=== PATIENT | female | born 1975 | race Caucasian/White ===

== ENCOUNTER 2017-01-23 13:59 | Emergency (ER) | payer MEDICAID, OTHER ==
[~2017-01-23] VITALS: Ht 157.5 cm; Wt 55.0 kg
[2017-01-23 14:11] VITALS: Ht 157.5 cm; Wt 55.0 kg
[2017-01-23] MEDS ORDERED: SOD CHLORIDE 0.9% 1,000 ML IV STA (17:55)
[2017-01-23 18:24] LABS: ADD SCAN DIFF NO
[2017-01-23 18:31] LABS: BASOPHILS % 0.3 % (0.0-2.0); EOSINOPHILS # 0.1 10^3/ul (0.0-0.5); EOSINOPHILS % 0.7 % (0.0-7.0); HEMATOCRIT 28.7 % (37.0-47.0); HEMOGLOBIN 8.8 g/dl (12.0-16.0); LYMPHOCYTES # 1.9 10^3/ul (0.8-2.9); LYMPHOCYTES % 21.4 % (15.0-51.0); MEAN CORPUSCULAR HEMOGLOBIN 22.2 pg (29.0-33.0); MEAN CORPUSCULAR HGB CONC 30.7 g/dl (32.0-37.0); MEAN CORPUSCULAR VOLUME 72.3 fl (82.0-101.0); MEAN PLATELET VOLUME 10.9 fl (7.4-10.4); MONOCYTE # 0.4 10^3/ul (0.3-0.9); MONOCYTES % 4.8 % (0.0-11.0); NEUTROPHIL # 6.4 10^3/ul (1.6-7.5); NEUTROPHILS % 72.6 % (39.0-77.0); PLATELET COUNT 272 10^3/UL (140-415); RED BLOOD COUNT 3.97 10^6/ul (4.20-5.40); RED CELL DISTRIBUTION WIDTH 15.9 % (11.5-14.5); WHITE BLOOD COUNT 8.8 10^3/ul (4.8-10.8)
[2017-01-23 18:35] LABS: ALBUMIN 4.5 g/dl (3.3-4.9); POTASSIUM 3.9 mmol/L (3.5-5.1)
[2017-01-23 18:37] LABS: BILIRUBIN,INDIRECT 0.2 mg/dl (0-1.1); BILIRUBIN,TOTAL 0.2 mg/dl (0.2-1.3); CREATININE 0.65 mg/dl (0.44-1.00); IRON 18 ug/dl (35-150)
[2017-01-23 18:38] LABS: ALBUMIN/GLOBULIN RATIO 1.36; CALCIUM 9.1 mg/dl (8.4-10.2); TOTAL PROTEIN 7.8 g/dl (6.1-8.1)
[2017-01-23 18:46] LABS: TOTAL IRON BINDING CAPACITY 481 ug/dl (241-421)
--- NOTE | 2017-01-23 18:58 | RADRPT ---
PROCEDURE: US Pelvis. CLINICAL INDICATION: Pelvic pain TECHNIQUE: Multiple sonographic images of the pelvis were obtained utilizing a transabdominal tech nique. The images were reviewed on a PACS workstation. COMPARISON: None available FINDINGS: Uterus: Normal in size, contour and echogenicity with no evidence for myometrial masses. Retroflexed in position. Size is estimated at 8.6 x 5.6 x 5.2 cm. Cervix: No abnormalities of significance are seen. Endometrium: Normal in thickness for the patient's provided age and presumed premenopausal status; 9.8 mm. No increased blood flow on Doppler interrogation. Right ovary / adnexa: Normal in size estimated at 2.2 x 1.8 x 1.5 cm. No evidence for masses, norm al blood flow on Doppler interrogation. Left ovary/adnexa: Normal in size estimated at 2.5 x 1.6 x 1.3 cm. No evidence for solid masses, no rmal blood flow on Doppler interrogation. Cul-de-sac: No evidence of free fluid. RPTAT:HJJR IMPRESSION: Unremarkable pelvic ultrasound. Physician Hadley Date Time Electronically viewed and signed by Physician Hadley on 01/23/2017 18:58 JR/
[2017-01-23 19:15] LABS: FERRITIN 4.1 ng/ml (6.2-137.0)
--- NOTE | 2017-01-23 19:46 | ERD ---
ER Documentation Chief Complaint Date/Time DATE: 01/23/17 TIME: 19:40 Chief Complaint REFERRED BY PCP TO TREAT ANEMIA HPI This is a very pleasant 41-year-old [place]ander-speaking female that presents to the emergency department from her primary care physician's office Dr. Ceferino Guerin for further evaluation into anemia. The patient had ancillary laboratory work performed in his office that indicated the patient had a hemoglobin of 8.6 and hematocrit of 27. The patient indicates that for the past 2 months she has had intermittent myalgias and lightheadedness. She indicates that she has become more tired much more easily. She states she has had no fevers no shaking or chills. She denies any easy bruising, epistaxis or gingival bleeding. She has no shortness of breath at rest or exertion. The patient indicates that over the past 2 months she also has been experiencing very regular menstrual cycles. She will demonstrate 2 times per month and will use roughly 5 super absorbency pads throughout the day. In 2012 the patient had an ectopic but otherwise has had no other surgical intervention. Her last menstrual period was December 29 roughly 1 month prior to arrival. She states she is currently sexually active with one partner but denies any pain with sexual intercourse or abnormal urethral discharge. She has no frequency urgency or dysuria. She denies any palpitations, headache or chest pain. ROS All systems reviewed and are negative except as per history of present illness. Medications Home Meds No Active Prescriptions or Reported Meds Allergies Allergies: Coded Allergies: Penicillins (Unverified Allergy, Unknown, 01/23/17) PMhx/Soc Medical and Surgical Hx: pt denies Surgical Hx Hx Miscellaneous Medical Probl: Yes (ANEMIA) Hx Alcohol Use: No Hx Substance Use: No Hx Tobacco Use: No Smoking Status: Never smoker Physical Exam Vitals Vital Signs Date Time Temp Pulse Resp B/P Pulse Ox O2 Delivery O2 Flow Rate FiO2 01/23/17 18:12 84 18 120/72 100 Room Air 01/23/17 14:11 99.7 102 20 134/78 99 Physical Exam Constitutional:Well-developed. Well-nourished. HEENT:Normocephalic. Atraumatic.Pupils were equal round reactive to light. Moist mucous membranes.No tonsillar exudates. Conjunctival pallor. Neck: No nuchal rigidity. No lymphadenopathy. No posterior cervical spine tenderness or step-offs. Respiratory: Not using accessory muscles of respiration.Lungs were clear to auscultation bilaterally. No rhonchi. No rales. No wheezing. Cardiovascular: Regular rate regular rhythm.No murmurs. No rubs were appreciated.S1, S2 normal. Distal pulses are palpable 2+ bilaterally. GI: Abdomen was soft. Nontender. Non Distended. No pulsatile abdominal masses or bruits. No rebound. No guarding. Bowel sounds were present and normal. : Pelvic exam was performed by myself and the patient denied a female nurse coding team lead present. No gross blood present within the vaginal vault. No endocervical discharge. No cervical motion tenderness. No adnexal tenderness or adnexal masses. Muscle skeletal: Full range of motion of both the upper and lower extremities bilaterally.Normal muscle tone.No assymetrical calf tenderness or swelling. Skin: No petechia, no purpura. No lesions on the palms or the soles of the feet. No maculopapular rash. NEURO: Patient was alert, awake, orientated x3.No facial droop. Gait observed and normal with no ataxia.Speech had regular rate and rhythm. No focal neurological deficits. Result Diagram: 01/23/170 01/23/17 1820 Results 24 hrs Laboratory Tests Test 01/23/17 18:20 Alanine Aminotransferase (ALT/SGPT) 30IU/L Albumin 4.5g/dl Albumin/Globulin Ratio 1.36 Alkaline Phosphatase 93IU/L Anion Gap 16 Aspartate Amino Transf (AST/SGOT) 27IU/L Basophils # 0.010^3/ul Basophils % 0.3% Blood Urea Nitrogen 12mg/dl Calcium Level 9.1mg/dl Carbon Dioxide Level 25mmol/L Chloride Level 104mmol/L Creatinine 0.65mg/dl Direct Bilirubin 0.00mg/dl Eosinophils # 0.110^3/ul Eosinophils % 0.7% Ferritin 4.1ng/ml Globulin 3.30g/dl Glucose Level 93mg/dl Hematocrit 28.7% Hemoglobin 8.8g/dl Indirect Bilirubin 0.2mg/dl Iron Level 18ug/dl Lymphocytes # 1.910^3/ul Lymphocytes % 21.4% Mean Corpuscular Hemoglobin 22.2pg Mean Corpuscular Hemoglobin Concent 30.7g/dl Mean Corpuscular Volume 72.3fl Mean Platelet Volume 10.9fl Monocytes # 0.410^3/ul Monocytes % 4.8% Neutrophils # 6.410^3/ul Neutrophils % 72.6% Nucleated Red Blood Cells # 0.010^3/ul Nucleated Red Blood Cells % 0.0/100WBC Percent Iron Saturation 4% SAT Platelet Count 74283^3/UL Potassium Level 3.9mmol/L Red Blood Count 3.9710^6/ul Red Cell Distribution Width 15.9% Sodium Level 141mmol/L Total Bilirubin 0.2mg/dl Total Iron Binding Capacity 481ug/dl Total Protein 7.8g/dl White Blood Count 8.810^3/ul Current Medications Medications (Trade) Dose Ordered Sig/Ari Route PRN Reason Start Time Stop Time Status Last Admin Dose Admin Sodium Chloride (NS) 1,000 ml @ 1,000 mls/hr Q1H STAT IV 01/23/17 17:55 01/23/17 18:54 DC 01/23/17 18:09 Procedures/MDM This patient presented to the emergency department with physical exam findings concerning of severe anemia. The patient had IV access that was established by nursing staff and was given a liter bolus of 0.9 normal saline. Ancillary laboratory work was obtained and the patient had a microcytic anemia. Hemoglobin was 8.8 she was hemodynamically stable at this time and therefore did not require blood transfusion. She was typed and crossed however. She was given ferrous sulfate in the emergency department. I did indicate to the patient that I felt she would benefit from an outpatient ASSISTANT FOOD SERVICE DIRECTOR consult to further evaluation into the dysfunctional uterine bleeding. I did obtain an ultrasound of the pelvis which indicated no abnormal masses to suggest a neoplasm at this time. The patient was discharged home in fair condition. They were instructed to return to the emergency department at any time if there was any worsening of their condition. The patient stated they would follow up with their PCP in the next 24-48 hours to initiate a suitable medication regimen under the care of their PCP as well as to allow their PCP to monitor any drug reactions. The patient was discharged home with prescriptions after they gave informed consent to the new medication. They were also fully informed by myself on the adverse effects and adverse drug interactions in order to provide adequate safeguards to prevent possible adverse reactions to medications. Departure Diagnosis: Primary Impression: Encounter for laboratory test Additional Impression: Microcytic anemia Condition: Fair PARMINDER,TROY Jan 23, 2017 19:46
[2017-01-23] MEDS ORDERED: FER325 PO (19:48)
[2017-01-23] MEDS ORDERED: FERROUS SULFATE (EC) 325 MG TAB PO ONE (20:00)
[2017-01-23 20:03] VITALS: BP 114/70; PULSE 65; RESP 16; TEMP 98.9
== END 2017-01-23 20:07 | disposition home or self-care (01) ==
LOC: E/R 13:59
DX: D50.9 Iron deficiency anemia, unspecified (principal); Z00.01 Encounter for general adult medical examination with abnormal findings
CPT/HCPCS: 76856; 80053; 82728; 83540; 84466; 85025; 86850; 86900; 86901; 96360; J7030; Z7502; Z7610

== ENCOUNTER 2018-01-21 04:48 | Emergency (ER) | END 2018-01-21 05:29 | disposition home or self-care (01) ==

== ENCOUNTER 2018-04-29 12:04 | Emergency (ER) | END 2018-04-29 14:37 | disposition home or self-care (01) ==